=== PATIENT | male | born 1945 | race African-American/Black ===

== ENCOUNTER 2019-05-09 10:19 | Day surgery (SDC) | payer MEDICARE, MEDICAID ==
[~2019-05-09] VITALS: Ht 198.1 cm; Wt 83.1 kg
[~2019-05-09 10:19] MED LIST: ALLO100T PO; CARV-50 PO; CLON-529 PO; FISH400C3 PO; FOLI0.8T19 PO; LOSA50TA3 PO; METO-539 PO; METO5TAB98 PO; NOR5T PO; OMEP40CA PO; OXYC-511 PO; PRAV40TA65 PO; [UNRECOGNIZED DRUG - CODE] PO
[2019-05-09] MEDS ORDERED: normal saline 1000ml 1,000 ML IV SCH (10:50)
[2019-05-09 11:41] LABS: BASOPHILS % (AUTO) 0.5 % (0-1); EOSINOPHILS # (AUTO) 0.1 X10'3 (0-0.9); EOSINOPHILS % (AUTO) 1.7 % (0-6); HEMATOCRIT 43.4 % (42.0-52.0); HEMOGLOBIN 14.8 g/dl (14.0-17.9); LYMPHOCYTES # (AUTO) 1.6 X10'3 (1.1-4.8); LYMPHOCYTES % (AUTO) 33.3 % (21-51); MEAN CORPUSCULAR HGB CONC 34.1 g/dL (33.0-36.5); MEAN CORPUSCULAR VOLUME 102.8 FL (78-98); MEAN PLATELET VOLUME 9.2 FL (7.4-10.4); MONOCYTES # (AUTO) 0.4 X10'3 (0-0.9); NEUTROPHILS # (AUTO) 2.6 X10'3 (1.8-7.7); NEUTROPHILS % (AUTO) 56.5 % (42-75); PLATELET COUNT 125 X10'3 (140-440); RED BLOOD COUNT 4.22 X10'6 (4.70-6.10); RED CELL DISTRIBUTION WIDTH 15.3 % (11.5-14.5); WHITE BLOOD COUNT 4.7 X10'3 (4.5-11.0)
[2019-05-09] MEDS ORDERED: heparin 1,000 units/ml 10ml inj ICATH ONE (11:55)
[2019-05-09] MEDS ORDERED: LIDOcaine 1% (10mg/ml) 2ml vial SQ ONE (11:55)
[2019-05-09] MEDS ORDERED: midazolam 2 mg/2 ml injection IV PRN (11:55)
[2019-05-09] MEDS ORDERED: fentaNYL/PF 50MCG/1 ML 2ML syringe IV PRN (11:55)
[2019-05-09] MEDS ORDERED: SERT25TA PO (11:56)
[2019-05-09] MEDS ORDERED: fentaNYL/PF 50MCG/1 ML 2ML syringe ONE (12:04)
[2019-05-09] MEDS ORDERED: heparin 1,000unit/ml 10ml vial 10 ML ONE (12:04)
[2019-05-09] MEDS ORDERED: midazolam 2 mg/2 ml injection ONE (12:04)
[2019-05-09] MEDS ORDERED: LIDOcaine 1%/PF 5ML 10 MG/ML VIAL ONE (12:05)
[2019-05-09 12:32] LABS: ALBUMIN 3.2 G/DL (3.4-5.0); ANION GAP 12 (8-16); BLOOD UREA NITROGEN 88 MG/DL (7-18); BUN/CREATININE RATIO 7.1 (5.4-32.0); CALCIUM 8.3 MG/DL (8.5-10.1); CHLORIDE 96 MMOL/L (99-107); CREATININE 12.48 MG/DL (0.60-1.10); GLUCOSE 88 MG/DL (70-104); SODIUM 131 MMOL/L (135-145); TOTAL CARBON DIOXIDE 23.3 MMOL/L (24-32); eGFR 5 ML/MIN
[2019-05-09 12:34] LABS: POTASSIUM 7.4 MMOL/L (3.5-5.1)
[2019-05-09] MEDS ORDERED: insulin regular, human 10 units/0.1 ml syringe IV STA (13:14)
[2019-05-09] MEDS ORDERED: dextrose 50%-water 50ml dispensing syringe IV STA (13:14)
[2019-05-09] MEDS ORDERED: albuterol 2.5 MG/3 ML nebule CONTNEB STA (13:14)
[2019-05-09] MEDS ORDERED: sodium bicarbonate (8.4%) 1 mEq/ml syringe IV STA (13:14)
[2019-05-09] MEDS ORDERED: insulin regular, human U-100 3ml vial - multi-dose IV STA (13:14)
[2019-05-09] MEDS ORDERED: calcium chloride 100 MG/1 ML inj IV STA (13:14)
[2019-05-09] MEDS ORDERED: sodium polystyrene sulfonate 15gm/60ml oral suspension PO ONE (13:15)
[2019-05-09] MEDS ORDERED: calcium chloride inj. 1,000 MG in normal saline 100ml IV soln 90 ML IV ONE (13:50)
[2019-05-09 16:40] VITALS: BP 148/99
[2019-05-09 17:15] VITALS: BP 144/94
--- NOTE | 2019-05-09 17:51 | NUR ---
Patient discharged to [facility] per Dr Severino. Arrangements made with [employer] for transportation to [facility] and back home. Given dc instructions for Tunnelled cath care and Conscious sedation. 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
== END 2019-05-09 17:50 | disposition short-term general hospital (02) ==
LOC: SSTAY O 10:19
PROVIDERS: ATTEND Radiology Diagnostic Radiology
DX: T82.868A Thrombosis due to vascular prosthetic devices, implants and grafts, initial encounter (principal); E11.22 Type 2 diabetes mellitus with diabetic chronic kidney disease; N18.9 Chronic kidney disease, unspecified; Z79.899 Other long term (current) drug therapy; Y83.2 Surgical operation with anastomosis, bypass or graft as the cause of abnormal reaction of the patient, or of later complication, without mention of misadventure at the time of the procedure; Y92.89 Other specified places as the place of occurrence of the external cause
CPT/HCPCS: 36415; 36558; 76937; 77001; 80048; 82948; 84132; 85025; 94640; 94760; 99152; 99153; C1750; C1769; C1894; J1644; J2250; J3010; J1815

== ENCOUNTER 2020-10-29 06:27 | Day surgery (SDC) | payer MEDICARE, MEDICAID ==
[~2020-10-29] VITALS: Ht 195.6 cm; Wt 74.5 kg
[~2020-10-29 06:27] MED LIST changes: +AMLO5TAB4 PO; +ASPI-611 PO; -CLON-529 PO; -FISH400C3 PO; -METO-539 PO; -NOR5T PO; -OMEP40CA PO; -OXYC-511 PO; +PHO667C PO; +RIVA10TA PO; -[UNRECOGNIZED DRUG - CODE] PO
[2020-10-29] MEDS ORDERED: normal saline 1000ml 1,000 ML IV SCH (07:15)
[2020-10-29] MEDS ORDERED: APIX5TAB3 PO (07:38)
[2020-10-29] MEDS ORDERED: CARV3.122 PO (07:38)
[2020-10-29] MEDS ORDERED: AMLO10TA PO (07:38)
[2020-10-29 08:05] VITALS: BP 118/74
[2020-10-29 08:06] LABS: BASOPHILS % (AUTO) 0.5 % (0-1); EOSINOPHILS # (AUTO) 0.4 X10'3 (0-0.9); EOSINOPHILS % (AUTO) 6.2 % (0-6); HEMATOCRIT 38.3 % (42.0-52.0); HEMOGLOBIN 12.8 g/dl (14.0-17.9); LYMPHOCYTES # (AUTO) 2.2 X10'3 (1.1-4.8); LYMPHOCYTES % (AUTO) 35.2 % (21-51); MEAN CORPUSCULAR HGB CONC 33.4 g/dL (33.0-36.5); MEAN CORPUSCULAR VOLUME 101.7 FL (78-98); MONOCYTES # (AUTO) 0.4 X10'3 (0-0.9); MONOCYTES % (AUTO) 6.1 % (2-12); NEUTROPHILS # (AUTO) 3.3 X10'3 (1.8-7.7); PLATELET COUNT 115 X10'3 (140-440); RED BLOOD COUNT 3.77 X10'6 (4.70-6.10); WHITE BLOOD COUNT 6.3 X10'3 (4.5-11.0)
[2020-10-29 08:46] LABS: ALBUMIN 3.2 G/DL (3.4-5.0); ANION GAP 12 (8-16); BLOOD UREA NITROGEN 60 MG/DL (7-18); CALCIUM 8.8 MG/DL (8.5-10.1); CHLORIDE 107 MMOL/L (99-107); CREATININE 12.05 MG/DL (0.60-1.10); GLUCOSE 95 MG/DL (70-104); SODIUM 144 MMOL/L (135-145); TOTAL CARBON DIOXIDE 25.3 MMOL/L (24-32); eGFR 5 ML/MIN
[2020-10-29 08:50] LABS: POTASSIUM 6.9 MMOL/L (3.5-5.1)
[2020-10-29] MEDS ORDERED: dextrose 50%-water 50ml dispensing syringe IV ONE (09:05)
[2020-10-29] MEDS ORDERED: sodium bicarbonate (8.4%) 1 mEq/ml syringe IV ONE (09:05)
[2020-10-29] MEDS ORDERED: insulin regular, human 10 units/0.1 ml syringe IV ONE (09:05)
[2020-10-29] MEDS: albuterol 2.5 MG/3 ML nebule CONTNEB PRN ×2 (10:23→12:28)
[2020-10-29] MEDS ORDERED: heparin 1,000unit/ml 10ml vial 10 ML ONE (11:10)
[2020-10-29] MEDS ORDERED: LIDOcaine 1%/PF 5ML 10 MG/ML VIAL ONE (11:10)
[2020-10-29] MEDS ORDERED: fentaNYL/PF 50MCG/1 ML 2ML syringe ONE (11:15)
[2020-10-29] MEDS ORDERED: midazolam 1 mg/ML 2ml injection ONE (11:15)
[2020-10-29 12:16] VITALS: BP 121/81
[2020-10-29 12:30] VITALS: BP 123/77
[2020-10-29 12:45] VITALS: BP 118/81
[2020-10-29 13:00] VITALS: BP 114/76
[2020-10-29 13:45] VITALS: BP 125/74
== END 2020-10-29 15:25 | disposition home or self-care (01) ==
LOC: SSTAY O 06:27
PROVIDERS: ATTEND Radiology Diagnostic Radiology
DX: T82.858A Stenosis of other vascular prosthetic devices, implants and grafts, initial encounter (principal); E11.22 Type 2 diabetes mellitus with diabetic chronic kidney disease; I12.0 Hypertensive chronic kidney disease with stage 5 chronic kidney disease or end stage renal disease; N18.6 End stage renal disease; I25.10 Atherosclerotic heart disease of native coronary artery without angina pectoris; I25.2 Old myocardial infarction; D64.9 Anemia, unspecified; G89.29 Other chronic pain; I48.91 Unspecified atrial fibrillation; E87.5 Hyperkalemia; I69.920 Aphasia following unspecified cerebrovascular disease; Z99.2 Dependence on renal dialysis; Z79.01 Long term (current) use of anticoagulants; Z98.890 Other specified postprocedural states; Z79.899 Other long term (current) drug therapy; Z79.82 Long term (current) use of aspirin; Z20.822 Contact with and (suspected) exposure to COVID-19; Y83.2 Surgical operation with anastomosis, bypass or graft as the cause of abnormal reaction of the patient, or of later complication, without mention of misadventure at the time of the procedure; Y92.89 Other specified places as the place of occurrence of the external cause
CPT/HCPCS: 36415; 36558; 76937; 77001; 80048; 82948; 85025; 85610; 87635; 94640; 99152; C1750; C1769; C1894; C9803; J1644; J1815; J2250; J3010; J7030; 94760; 99153; A9270